=== PATIENT | female | born 1985 | race Caucasian/White ===

== ENCOUNTER 2016-07-14 09:39 | Emergency (ER) | payer BC, OTHER ==
[2016-07-14 10:06] VITALS: TEMP 98.8
--- NOTE | 2016-07-14 10:06 | ED.PDOC ---
History of Present Illness - General Chief Complaint: Abdominal Pain Stated Complaint: abdomen pain Time Seen by Provider: 07/14/16 09:54 Information Source: patient, RN notes reviewed Exam Limitations: no limitations - History of Present Illness Initial Comments: Bety Lynch 30 y/o female with no chronic medical problem stated that her symptms of abdominal pain started this morning about 7 am of sharp to dull steady right sided abdominal pain radiating to her back felt nauseated but no vomiting ate grapefruit but did not relieved or worsen pain,had bm yesterday no diarrhea no dysuria,no vaginal discharge,no history of sti Abdominal Pain Onset Location: RLQ Pain Radiation: back Quality: dull, sharpness, steady Timing/Duration: 4-6 hours Improving Factors: nothing Worsening Factors: nothing Associated Symptoms: denies symptoms Review of Systems - Review of Systems Constitutional: States: no symptoms reported EENTM: States: no symptoms reported Respiratory: States: no symptoms reported Cardiology: States: no symptoms reported Gastrointestinal/Abdominal: States: see HPI Genitourinary: States: no symptoms reported Musculoskeletal: States: no symptoms reported Skin: States: no symptoms reported Neurological: States: no symptoms reported Endocrine: States: no symptoms reported Hematologic/Lymphatic: States: no symptoms reported Past Medical History (General) - Patient Medical History Hx Seizures: No Hx Asthma: No Hx Hypertension: No - Social History Hx Tobacco Use: No - Activities of Daily Living Patient Lives Alone: No Grooming Ability: Independent Eating (Feeding) Ability: Independent Toileting Ability: Independent - Female History Patient is a Female of Child Bearing Age (10 -59 yrs old): Yes Hx Last Menstrual Period: 06/28/16 Family Medical History - Family History Paternal Family History: No Known - patient is adopted Mother Family History: Unknown Living Status: Unknown Hx Family;Other: Adopted; unknown hx Physical Exam - Physical Exam General Appearance: Alert, No apparent distress Eyes, Ears, Nose, Throat Exam: PERRL/EOMI, normal ENT inspection, TMs normal Neck: non-tender, normal inspection, limited range of motion Respiratory: lungs clear, normal breath sounds, no respiratory distress Cardiovascular/Chest: normal peripheral pulses, regular rate, rhythm, no edema, no murmur Gastrointestinal/Abdominal: normal bowel sounds, soft, no organomegaly, tenderness - right side abdomen no peritoneal signs Back Exam: normal inspection, no CVA tenderness, no vertebral tenderness Extremity: normal range of motion, non-tender, normal inspection Neurologic: no motor/sensory deficits, alert, normal mood/affect, oriented x 3 Skin Exam: normal color Lymphatic: no adenopathy Progress - Results/Orders Results/Orders: 07/14/16 10:22 URINALYSIS Stat 07/14/16 10:30 CALCIUM Stat HEPATIC FUNCTION PANEL Stat LIPASE Stat URINE DRUG SCREEN, 7 ASSAY Stat Laboratory Results WBC 6.0 K/mm3 (4.8-10.8) 07/14/16 10:30 RBC 4.98 M/mm3 (4.20-5.40) 07/14/16 10:30 Hgb 15.5 gm/dL (12.0-16.0) 07/14/16 10:30 Hct 46.0 % (36.0-47.0) 07/14/16 10:30 MCV 92.5 fl (81.0-99.0) 07/14/16 10:30 MCH 31.2 pg (27.0-31.0) H 07/14/16 10:30 MCHC 33.7 g/dL (33.0-37.0) 07/14/16 10:30 RDW 13.0 % (11.5-14.5) 07/14/16 10:30 Plt Count 341 K/mm3 (130-400) 07/14/16 10:30 MPV 6.7 fl (7.40-10.4) L 07/14/16 10:30 Absolute Neuts (auto) 2.70 K/uL (1.8-6.8) 07/14/16 10:30 Absolute Lymphs (auto) 2.50 K/uL (1.0-3.4) 07/14/16 10:30 Absolute Monos (auto) 0.50 K/uL (0.2-0.8) 07/14/16 10:30 Absolute Eos (auto) 0.10 K/uL (0.0-0.4) 07/14/16 10:30 Absolute Basos (auto) 0.10 K/uL (0.0-0.1) 07/14/16 10:30 Neutrophils % 45.8 % (42.0-78.0) 07/14/16 10:30 Lymphocytes % 42.5 % (20.0-50.0) 07/14/16 10:30 Monocytes % 8.9 % (2.0-9.0) 07/14/16 10:30 Eosinophils % 1.7 % (1.0-5.0) 07/14/16 10:30 Basophils % 1.1 % (0.0-2.0) 07/14/16 10:30 Sodium 140 mmol/L (135-145) 07/14/16 10:30 Potassium 3.7 mmol/L (3.6-5.0) 07/14/16 10:30 Chloride 102 mmol/L (101-111) 07/14/16 10:30 Carbon Dioxide 25 mmol/L (21-31) 07/14/16 10:30 Anion Gap Cancelled 07/14/16 10:30 BUN 13 mg/dL (7-18) 07/14/16 10:30 Creatinine 0.80 mg/dL (0.6-1.3) 07/14/16 10:30 BUN/Creatinine Ratio Cancelled 07/14/16 10:30 Random Glucose 86 mg/dL (70-105) 07/14/16 10:30 Serum Osmolality Cancelled 07/14/16 10:30 Globulin Cancelled 07/14/16 10:30 Albumin/Globulin Ratio Cancelled 07/14/16 10:30 Urine HCG, Qual Negative 07/14/16 10:30 CT ABD/PELVIS without contrast-no abnormalities noted Departure - Departure Clinical Impression: Abdominal wall pain in right lower quadrant Time of Disposition: 12:40 Disposition: Discharge to Home or Self Care Condition: Good Departure Forms: ED Discharge - Pt. Copy, Patient Portal Self Enrollment Instructions: DI for Abdominal Pain-Adult Referrals: Ernie Klein MD [Primary Care Provider] - 1-2 Weeks Prescriptions: Borxnrrskd-Nrznewuvdyoqn-Fjgra [Fioricet] 1 cap PO TID PRN #14 cap PRN Reason: Pain Promethazine HCl 50 mg PO TID PRN #20 tab PRN Reason: Nausea Home Medications: Ambulatory Orders Zocbeoqyev-Qmipdayqmfzcd-Dovvx [Fioricet] 1 cap PO TID PRN #14 cap 07/14/16 Gabapentin [Neurontin] 200 mg PO BEDTIME 07/14/16 Pramipexole Dihydrochloride [Pramipexole Dihydrochlori] 0.125 mg PO BEDTIME Promethazine HCl 50 mg PO TID PRN #20 tab 07/14/16 Tizanidine HCl 4 mg PO BEDTIME 07/14/16 Tramadol HCl 50 - 100 mg PO BEDTIME 07/14/16 Additional Instructions: CLEAR LIQUIDS FOR TODAY THEN TO ADVANCE DIET TOLERATED;AVOID GREASY /SPICY FOODS UNTIL BETTER;EXCUSE FROM WORK 07/14- RETURN TO WORK WITHOUT RESTRICTIONS 07/16/2016.
[2016-07-14] MEDS ORDERED: LACTATED RINGERS 1,000 ML IVS ONE (10:12)
[2016-07-14] MEDS ORDERED: MORPHINE SULFATE INJ 10 MG/ML VIAL IV ONE (10:14)
[2016-07-14] MEDS ORDERED: SODIUM CHLORIDE 0.9% 10 ML VIAL ONE (10:17)
[2016-07-14] MEDS: PROMETHAZINE HCL INJ 25 MG/ML VIAL IM ONE ×2 (10:55→10:58)
[2016-07-14 12:31] VITALS: BP 113/72; O2SAT 98
--- NOTE | 2016-07-18 00:44 | CT ---
EXAM DESCRIPTION: Abdoment/Pelvis w/o Contrast CLINICAL HISTORY: Several hours of abdominal pain, no fever COMPARISON: None. TECHNIQUE: CT of the abdomen and pelvis was performed without contrast. Multiple axial images and multiplanar reconstructions were generated. FINDINGS: Lung bases: The visualized lung bases are clear. Solid organs: The liver, gallbladder, pancreas, bilateral adrenal glands and the spleen are unremarkable. Low densities noted within the kidneys likely compatible with cysts. No renal stone on today's study. Gastrointestinal: The stomach, small intestine, and large intestine are normal. The appendix is not well visualized. No secondary signs of appendicitis. No free fluid or free air. Vascular: Normal. Lymph nodes: No pathologically enlarged lymph nodes are present by CT size criteria. Musculoskeletal and soft tissues: No destructive osseous lesions are present. Urinary bladder and pelvic organs: The urinary bladder is normal. IMPRESSION: 1. Today's exam demonstrates evidence of bilateral renal cysts, and otherwise is unremarkable. 2. No inflammatory changes on today's study to account for patient's abdominal pain. 3. While the appendix is not visualized. No secondary findings of appendicitis such as an abscess or right lower quadrant inflammatory changes. Electronically signed by: Jordan Manrique MD 07/14/2016 11:48 AM TELEGRAPHIC INSTRUMENT SUPERVISOR
== END 2016-07-14 13:03 | disposition home or self-care (01) ==
LOC: ER 09:39
DX: R10.31 Right lower quadrant pain (principal)
CPT/HCPCS: 74176; 80048; 80076; 80307; 81001; 81025; 82310; 83690; 85025; J2270; J7120